=== PATIENT | female | born 1965 | race Native Hawaiian/Other Pacific Islander ===

== ENCOUNTER 2017-09-21 16:45 | Emergency (ER) | payer OTHER ==
[~2017-09-21] VITALS: Ht 153 cm; Wt 53.6 kg
[~2017-09-21 16:45] MED LIST: HYDR25TA PO; LORA10TA7 PO; PERCT PO; [UNRECOGNIZED DRUG - CODE] PO
[2017-09-21] MEDS ORDERED: FERR-89 PO (16:50)
[2017-09-21 17:27] LABS: BASOPHILS % (AUTO) 0.7 % (0.0-2.0); EOSINOPHILS % (AUTO) 4.5 % (1.0-6.0); HEMATOCRIT 26.9 % (36-46); HEMOGLOBIN 9.1 g/dL (12.0-16.0); LYMPHOCYTES # (AUTO) 2.8 K/uL (1.0-4.8); LYMPHOCYTES % (AUTO) 39.6 % (22.0-44.0); MEAN CORPUSCULAR HEMOGLOBIN 31.2 pg (26.0-34.0); MEAN CORPUSCULAR VOLUME 92 fL (80-100); MONOCYTES # (AUTO) 0.4 K/uL (0.1-1.0); MONOCYTES % (AUTO) 5.3 % (2.0-9.0); NEUTROPHILS # (AUTO) 3.5 K/uL (1.8-7.7); NEUTROPHILS % (AUTO) 49.9 % (40.0-70.0); PLATELET COUNT (AUTO) 424 K/uL (150-450); RED BLOOD CELL COUNT(AUTO) 2.92 MIL/uL (4.00-5.20); RED CELL DISTRIBUTION WIDTH 14.6 % (11.5-14.5)
[2017-09-21 20:19] VITALS: BP 131/89
== END 2017-09-21 21:08 | disposition home or self-care (01) ==
LOC: EMS 16:45
DX: N93.8 Other specified abnormal uterine and vaginal bleeding (principal); D25.9 Leiomyoma of uterus, unspecified; D64.9 Anemia, unspecified; I10 Essential (primary) hypertension
CPT/HCPCS: 76856; 99285

== ENCOUNTER 2018-01-18 11:49 | Emergency (ER) | payer OTHER ==
[~2018-01-18] VITALS: Ht 152.4 cm; Wt 53.2 kg
[~2018-01-18 11:49] MED LIST changes: +FERR-89 PO; -PERCT PO; -[UNRECOGNIZED DRUG - CODE] PO
[2018-01-18] MEDS ORDERED: METHOCARBAMOL 500 MG TABLET PO ONE (12:30)
[2018-01-18] MEDS ORDERED: KETOROLAC TROMETHAMINE 30 MG/ML VIAL IM ONE (12:30)
[2018-01-18 13:54] VITALS: BP 148/80
== END 2018-01-18 13:55 | disposition home or self-care (01) ==
LOC: EMS 11:50
DX: S00.93XA Contusion of unspecified part of head, initial encounter (principal); R06.02 Shortness of breath; I10 Essential (primary) hypertension; V49.50XA Passenger injured in collision with unspecified motor vehicles in traffic accident, initial encounter; Y93.89 Activity, other specified; Y92.89 Other specified places as the place of occurrence of the external cause; Y99.8 Other external cause status
CPT/HCPCS: 71045; 96372; 99283; J1885

== ENCOUNTER 2022-07-17 09:03 | Emergency (ER) | payer OTHER ==
[~2022-07-17] VITALS: Ht 154.9 cm; Wt 54.1 kg
[~2022-07-17 09:03] MED LIST changes: -FERR-89 PO; +FERR325T27 PO; -HYDR25TA PO; +HYDR25TA2 PO
[2022-07-17 09:22] LABS: COVID AG,FIA SOURCE NASAL SWAB
[2022-07-17] MEDS ORDERED: ACETAMINOPHEN 1000 MG/ISO-OSM 100 ML IV ONE (09:30)
[2022-07-17] MEDS ORDERED: KETOROLAC TROMETHAMINE 30 MG/ML VIAL IVP ONE (09:30)
[2022-07-17] MEDS ORDERED: SODIUM CHLORIDE 0.9% 1,600 ML IV ONE (09:30)
[2022-07-17] MEDS ORDERED: FAMOTIDINE 10 MG/ML 2 ML VIAL IVP ONE (09:30)
[2022-07-17] MEDS ORDERED: MAG HYDROX/AL HYDROX/SIMETH 30 ML SUSP UDCUP PO ONE (09:30)
[2022-07-17] MEDS ORDERED: 0.9% SODIUM CHLORIDE 10 ML SYRINGE IVP PRN (09:30)
[2022-07-17] MEDS ORDERED: ONDANSETRON HCL 4 MG/2 ML VIAL IVP ONE (09:30)
[2022-07-17] MEDS ORDERED: SODIUM CHLORIDE 0.9% 100 ML ONE (09:47)
[2022-07-17] MEDS ORDERED: IOHEXOL 350 MG/ML 100 ML VIAL ONE (09:47)
[2022-07-17 09:52] LABS: INFLUENZA TYPE A NEGATIVE FOR TYPE A (NEGATIVE); INFLUENZA TYPE B NEGATIVE FOR TYPE B (NEGATIVE)
[2022-07-17 10:01] LABS: BASOPHILS % (AUTO) 0.6 % (0.0-2.0); EOSINOPHILS % (AUTO) 0 % (1.0-6.0); HEMATOCRIT 41.4 % (36-46); LYMPHOCYTES # (AUTO) 0.4 K/uL (1.0-4.8); LYMPHOCYTES % (AUTO) 6.6 % (22.0-44.0); MEAN CORPUSCULAR HEMOGLOBIN 29.3 pg (26.0-34.0); MEAN CORPUSCULAR VOLUME 86 fL (80-100); MONOCYTES # (AUTO) 0.5 K/uL (0.1-1.0); MONOCYTES % (AUTO) 6.8 % (2.0-9.0); NEUTROPHILS # (AUTO) 5.8 K/uL (1.8-7.7); PLATELET COUNT (AUTO) 319 K/uL (150-450); RED BLOOD CELL COUNT(AUTO) 4.79 MIL/uL (4.00-5.20); RED CELL DISTRIBUTION WIDTH 12.9 % (11.5-14.5)
[2022-07-17 10:13] LABS: CALCIUM, TOTAL 9.4 mg/dL (8.8-10.5); CREATININE 0.98 mg/dL (0.60-1.30); POTASSIUM 3.3 mmol/L (3.5-5.1); PROTHROMBIN TIME 10.9 SEC (9.4-11.6)
[2022-07-17 10:34] LABS: LACTIC ACID 1.4 mmol/L (0.4-2.0)
[2022-07-17 10:42] LABS: ALBUMIN 3.9 g/dL (3.4-5.0); BILIRUBIN,TOTAL 0.6 mg/dL (0.1-1.0); MAGNESIUM 1.8 mg/dL (1.80-2.40); TOTAL PROTEIN, SERUM 9.1 g/dL (6.4-8.2)
[2022-07-17 10:46] VITALS: BP 104/65
[2022-07-17 12:01] LABS: BILIRUBIN,URINE NEGATIVE (NEGATIVE); GLUCOSE, URINE (UA) NEGATIVE (NEGATIVE); KETONES,URINE NEGATIVE (NEGATIVE); LEUKOCYTE ESTERASE ,URINE MODERATE (NEGATIVE); NITRATE,URINE NEGATIVE (NEGATIVE); OCCULT BLOOD,URINE NEGATIVE (NEGATIVE); PROTEIN,URINE NEGATIVE (NEGATIVE); SPECIFIC GRAVITIY, URINE 1.023 (1.003-1.030); UROBILINOGEN,URINE <=1.0 mg/dL (<=1.0)
[2022-07-17 12:03] LABS: APPEARANCE,URINE HAZY (CLEAR)
[2022-07-17 12:08] LABS: BACTERIA,URINE None Seen /HPF (None Seen); RBC,URINE None Seen /HPF (0-2)
[2022-07-17] MEDS ORDERED: CEPHALEXIN MONOHYDRATE 500 MG CAPSULE PO ONE (12:30)
[2022-07-17] MEDS ORDERED: ONDA-104 PO (13:29)
[2022-07-17] MEDS ORDERED: CEPH-558 PO (13:29)
[2022-07-25] MEDS ORDERED: METR500 PO (13:48)
[2022-07-25] MEDS ORDERED: CEFD300C18 PO (13:49)
== END 2022-07-17 12:46 | disposition home or self-care (01) ==
LOC: EMS 09:13
DX: R10.33 Periumbilical pain (principal); N39.0 Urinary tract infection, site not specified; I10 Essential (primary) hypertension; Z20.822 Contact with and (suspected) exposure to COVID-19
CPT/HCPCS: 99291; 74177; 96365; 96375; 71045; 87426; 80053; 81001; 82550; 83605; 83735; 83880; 84100; 84484; 84702; 85025; 85610; 87040; 87804; 36415; 87086; 87186; 93005; 84145; J3490; J1885; J2405; Q9967; J7030; J7050; J0131

== ENCOUNTER → 2023-02-07 | Outpatient (CLI) | payer OTHER ==
[~2023-02-07] MED LIST changes: +CEFD300C18 PO; -HYDR25TA2 PO; +METR500 PO; +ONDA-104 PO
[2023-02-08 07:07] LABS: RUBEOLA (MEASLES) IGG >300.0 AU/mL (Immune >16.4)
== END | disposition home or self-care (01) ==
LOC: LABMN 10:02
PROVIDERS: ATTEND Internal Medicine
DX: Z02.1 Encounter for pre-employment examination (principal)
CPT/HCPCS: 86706; 86735; 86762; 86765; 86787